=== PATIENT | female | born 1960 | race Caucasian/White ===

== ENCOUNTER 2018-06-16 13:47 | Emergency (ER) | payer OTHER ==
[~2018-06-16] VITALS: Ht 172.7 cm; Wt 78.0 kg
[2018-06-16] MEDS ORDERED: VASOTEC10 MG NGT (13:54)
[2018-06-17] MEDS ORDERED: MUCINEX DM ER1 EAC1 PO (07:03)
[2018-06-17] MEDS ORDERED: LEVALBUTER1.25 MG/3 IH (07:03)
[2018-06-17] MEDS ORDERED: BUDESONIDE0.5 MG/2 M IH (07:03)
[2018-06-17] MEDS ORDERED: TESSALON PERLE100 M1 PO (07:03)
[2018-06-17] MEDS ORDERED: IPRATROPIU0.2 MG/1 M IH (07:03)
[2018-06-17] MEDS ORDERED: MEDROLPACK PO (07:03)
== END 2018-06-17 07:43 | disposition home or self-care (01) ==
LOC: ER 13:47
DX: J44.9 Chronic obstructive pulmonary disease, unspecified (principal); D72.828 Other elevated white blood cell count

== ENCOUNTER 2018-06-20 18:08 | Inpatient (IN) | payer OTHER ==
[~2018-06-20] VITALS: Ht 172.7 cm; Wt 78.0 kg
[~2018-06-20 18:08] MED LIST: BUDESONIDE0.5 MG/2 M IH; IPRATROPIU0.2 MG/1 M IH; LEVALBUTER1.25 MG/3 IH; MEDROLPACK PO; MUCINEX DM ER1 EAC1 PO; TESSALON PERLE100 M1 PO; VASOTEC10 MG NGT
--- NOTE | 2018-06-20 18:17 | NUR ---
PTE DEPENDIENTE DE OXIGENO CON CANULA NASAL A 4 LITROS LLEGA EN SILLA DE TALI EN COMPANIA DE FAMILIAR. QUIEN REFIERE QUE ESTUVO EN ER HACE UNOS TAYLOR. LE DIERON TRATAMIENTO TODO SALIO NEGATIVO Y LE DIERON DE YAMILEX. REFIERE HOY COMENZO A PRESENTAR FIEBRE, TOS SECA PERSISTENTE, ESCALOFRIOS. REFIERE TERMINO LOS MEDICAMENTOS QUE LE RECETARON.
--- NOTE | 2018-06-20 19:01 | NUR ---
EVALUA PTE. SE ORIENTA A PTE SOBRE TX MEDICO. PTE REFIERE COMPRENDER. SE COLECTAN MUESTRAS DE LABORATORIO BAJO MEDIDAS ASEPTICAS. SE ADMINISTRAN MEDICAMENTOS BERTO ORDEN MEDICA. SE NOTIFICAN RAFAT X. SE NOTIFICAN ABG Y TERAPIA RESPIRATORIA A MS.BROWN. PROCEDIMIENTOS LLEVADOS A CABO POR .
--- NOTE | 2018-06-21 01:13 | NUR ---
PACIENTE ALERTA Y ORIENTADA POR GABRIELA ESFERAS EN CAMA CON BARANDAS ELEVADAS POR RAMIREZ SEGURIDAD. PACIENTE CON BUEN PATRON RESPIRATORIO ASISTIDA RESPIRATORIAMENTE CON CANULA NASAL A 3 LTS. PACIENTE CON ORINA ESPONTANEA. SE OBSERVA IVF'S PATENTE PAYTON DE EDEMA Y ENROJECIMIENTO. SE ORIENTA A PACIENTE SOBRE EDUCACION A CESACION DE FUMAR. PACIENTE REFIERE HACE 5 ANOS NO FUMA. PENDIENTE CONSULTA CON DRA. CASILLAS.
--- NOTE | 2018-06-21 07:28 | NUR ---
SE RECIBE PTE DEL TURNO ANTERIOR, ALERTA Y ORIENTADA X 3 ESFERAS, EN CAMA NIVEL MAS BAJO, ORTIZ DE IDENTIFICACION Y BARANDAS ELEVADAS POR PRECAUCION. SE OBSERVA CON BUEN PATRON RESPIRATORIO Y PIEL TIBIA AL TACTO. IV PATENTE Y PAYTON DE EDEMA O ERITEMA CON 0.45% NACL @80ML/HR. PENDIENTE A CONSULTA CON DRA Yasmine CASILLAS. SE MANTIENE BAJO OBSERVACION.
[2018-07-05] MEDS ORDERED: MEDROLPACK PO (08:47)
[2018-07-05] MEDS ORDERED: FLUCONAZOLE200 MG PO (08:47)
[2018-07-05] MEDS ORDERED: METFORMIN HCL500 MG PO (08:52)
== END 2018-07-05 10:22 | disposition home or self-care (01) | DRG 190 ==
LOC: ER 18:08 → MEDI 06-21 08:42 → ICU-2 06-21 08:42 → ICU 06-22 07:41 → MEDI 06-23 12:20
PROVIDERS: ADMIT Internal Medicine
PROC: 3E0F7GC Introduction of Other Therapeutic Substance into Respiratory Tract, Via Natural or Artificial Opening (ICD-10-PCS; principal; 2018-06-20)
PROC: 4A033R1 Measurement of Arterial Saturation, Peripheral, Percutaneous Approach (ICD-10-PCS; 2018-06-20)
PROC: BW24ZZZ Computerized Tomography (CT Scan) of Chest and Abdomen (ICD-10-PCS; 2018-06-26)
PROC: BW28ZZZ Computerized Tomography (CT Scan) of Head (ICD-10-PCS; 2018-06-26)
DX: J44.1 Chronic obstructive pulmonary disease with (acute) exacerbation (principal); A41.89 Other specified sepsis; J18.9 Pneumonia, unspecified organism; R09.02 Hypoxemia; E11.65 Type 2 diabetes mellitus with hyperglycemia; J10.1 Influenza due to other identified influenza virus with other respiratory manifestations; D72.828 Other elevated white blood cell count; Z79.4 Long term (current) use of insulin; Z99.81 Dependence on supplemental oxygen

== ENCOUNTER 2019-02-11 01:36 | Inpatient (IN) | payer OTHER ==
[~2019-02-11] VITALS: Ht 172.7 cm; Wt 82.6 kg
[~2019-02-11 01:36] MED LIST changes: +FLUCONAZOLE200 MG PO; +METFORMIN HCL500 MG PO
[2019-02-11] MEDS ORDERED: PREDNISOLONE ACE5 ML (02:00)
[2019-02-11] MEDS ORDERED: NORVASC2.5 M1 (02:00)
[2019-02-11] MEDS ORDERED: LECITHIN1200 MG (02:01)
[2019-02-11] MEDS ORDERED: ALL DAY ALLERGY10 M3 (02:01)
[2019-02-11] MEDS ORDERED: SINGULAIR 10MG10 MG (02:01)
[2019-02-11] MEDS ORDERED: SPIRIVA RESPIMAT4 G1 (02:02)
[2019-02-11] MEDS ORDERED: ADVAIR HFA 230/12 GM (02:02)
[2019-02-18] MEDS ORDERED: DILTIAZEM HCL30 MG PO (12:04)
== END 2019-02-18 14:11 | disposition home or self-care (01) | DRG 202 ==
LOC: ER 01:36 → SURH 12:44 → MEDJ 12:44 → SURH 02-12 09:45 → MEDJ 02-12 13:36 → SURH 02-12 16:49
PROVIDERS: ADMIT Internal Medicine
PROC: 8E0ZXY6 Isolation (ICD-10-PCS; principal; 2019-02-11)
PROC: 3E0F7GC Introduction of Other Therapeutic Substance into Respiratory Tract, Via Natural or Artificial Opening (ICD-10-PCS; 2019-02-11)
PROC: 4A033R1 Measurement of Arterial Saturation, Peripheral, Percutaneous Approach (ICD-10-PCS; 2019-02-11)
DX: J20.0 Acute bronchitis due to Mycoplasma pneumoniae (principal); J15.7 Pneumonia due to Mycoplasma pneumoniae; J44.1 Chronic obstructive pulmonary disease with (acute) exacerbation; E27.3 Drug-induced adrenocortical insufficiency; E09.9 Drug or chemical induced diabetes mellitus without complications; T38.0X5A Adverse effect of glucocorticoids and synthetic analogues, initial encounter; Y92.238 Other place in hospital as the place of occurrence of the external cause

== ENCOUNTER 2021-10-22 21:08 | Emergency (ER) | payer OTHER ==
[~2021-10-22] VITALS: Ht 172.7 cm; Wt 75.7 kg
[~2021-10-22 21:08] MED LIST changes: +ADVAIR HFA 230/12 GM; +ALL DAY ALLERGY10 M3; +DILTIAZEM HCL30 MG PO; +LECITHIN1200 MG; +NORVASC2.5 M1; +PREDNISOLONE ACE5 ML; +SINGULAIR 10MG10 MG; +SPIRIVA RESPIMAT4 G1
[2021-10-22] MEDS ORDERED: GLIPIZIDE XL10 MG PO (21:42)
[2021-10-22] MEDS ORDERED: FAMCICLOVIR500 MG PO (23:10)
== END 2021-10-22 23:41 | disposition home or self-care (01) ==
LOC: ER 21:08
DX: J44.1 Chronic obstructive pulmonary disease with (acute) exacerbation (principal); E11.65 Type 2 diabetes mellitus with hyperglycemia; Z79.84 Long term (current) use of oral hypoglycemic drugs; I11.9 Hypertensive heart disease without heart failure; A03.9 Shigellosis, unspecified; J43.9 Emphysema, unspecified

== ENCOUNTER 2024-06-12 12:02 | Inpatient (IN) | payer OTHER ==
[~2024-06-12] VITALS: Ht 172.7 cm; Wt 79.4 kg
[~2024-06-12 12:02] MED LIST changes: +FAMCICLOVIR500 MG PO; +GLIPIZIDE XL10 MG PO
[2024-06-12] MEDS ORDERED: IPRATROPIUM BROMIDE 0.5 MG/2.5 ML AMPUL.NEB IH SCH ×2 (13:30→17:44)
[2024-06-12] MEDS ORDERED: 0.9 % SODIUM CHLORIDE 1,000 ML IV ONE (13:30)
[2024-06-12] MEDS ORDERED: FAMOtidine 10 MG/ML (4ML VIAL) IV ONE (13:30)
[2024-06-12] MEDS ORDERED: LEVALBUTEROL HCL 1.25 MG/3 ML SOLUTION IH SCH ×2 (13:30→17:44)
[2024-06-12] MEDS ORDERED: CEFTRIAXONE SODIUM 1,000 MG VIAL IV ONE (13:30)
[2024-06-12] MEDS ORDERED: CEFTRIAXONE SODIUM 1,000 MG VIAL ONE ×2 (13:59→18:06)
[2024-06-12] MEDS ORDERED: FAMOTIDINE/PF 20 MG/2 ML VIAL ONE (13:59)
[2024-06-12 14:42] LABS: INR 1.02; PARTIAL THROMBOPLASTIN TIME 22.5 SECONDS (22.0-34.0); PROTHROMBIN TIME 11.1 SECONDS (9.0-11.5)
[2024-06-12 14:46] LABS: HEMATOCRIT 46.2 % (36.0-45.00); HEMOGLOBIN 15.2 g/dL (12.0-15.00); MEAN CELL VOLUME 85.6 fL (80.00-100.00); MEAN CORPUSCULAR HEMOGLOBIN 28.2 pg (27.00-32.0); PLATELET COUNT 197 K/uL (150-450); RED BLOOD COUNT 5.39 M/uL (4.00-6.00)
[2024-06-12 14:53] LABS: ALBUMIN 3.7 gm/dL (3.4-5.0); BILIRUBIN TOTAL 0.37 mg/dL (0.3-1.2); CALCIUM 10.3 mg/dL (8.5-10.1); CREATININE SERUM 0.78 mg/dL (0.55-1.02); GFR 74.12; GLOBULINA 4.3 G/DL (2.4-3.5); POTASSIUM 4.07 mEq/L (3.5-5.1)
[2024-06-12 14:56] LABS: PH,URINE 7.5 (5.0-8.0); URINE APPEARANCE Clear; URINE BILIRRUBIN Negative (NEGATIVE); URINE BLOOD Negative; URINE COLOR Yellow; URINE KETONE 15 (NEGATIVE); URINE LEUKOCYTE Small; URINE NITRATE Negative; URINE PROTEIN Negative (NEGATIVE)
[2024-06-12 14:59] LABS: URINE BACTERIA 36.6 uL (0.0-1933); URINE EPITHELIAL CELLS 4.2 uL (0.0-38.8); URINE RBC 10.1 uL (0.0-20.8); URINE WBC 44.6 uL (0.0-23.2)
[2024-06-12 15:04] LABS: ABG PH 7.414 (7.35-7.45); ABG pCO2 45.2 mmHg (35-45); BICARBONATE 28.2 mmol/l (23-25); SaO2 97.4 %; Tco2 29.6 mmol/l
[2024-06-12 15:05] LABS: URINE GLUCOSE >=1000 MG/DL (NEGATIVE)
[2024-06-12 15:17] LABS: o2 36 %
[2024-06-12 15:18] LABS: allen test SATISFACTORY; mode NASAL CANNULA; puncture site RADIAL RIGHT
[2024-06-12] MEDS ORDERED: INSULIN REGULAR, HUMAN 1,000 UNIT/10 ML UNITS IV ONE (15:30)
[2024-06-12] MEDS ORDERED: 0.9 % SODIUM CHLORIDE 1,000 ML IV SCH (17:45)
[2024-06-12] MEDS ORDERED: CEFTRIAXONE SODIUM 2,000 MG in 0.9 % SODIUM CHLORIDE 100 ML IV SCH (17:48)
[2024-06-12] MEDS ORDERED: MONTELUKAST SODIUM 10 MG TABLET PO SCH (17:48)
[2024-06-12] MEDS ORDERED: AZITHROMYCIN 500 MG in 0.9 % SODIUM CHLORIDE 250 ML IV SCH (17:48)
[2024-06-12] MEDS ORDERED: KETOROLAC TROMETHAMINE 15 MG VIAL IU ONE (18:00)
[2024-06-12] MEDS ORDERED: INSULIN LISPRO 1,000 UNIT/10 ML UNITS SUBCUTANEO PRN (18:00)
[2024-06-12] MEDS ORDERED: ACETAMINOPHEN 500 MG GEL..CAP PO PRN (18:00)
[2024-06-12] MEDS ORDERED: ACETAMINOPHEN 500 MG GEL..CAP PO ONE ×2 (18:00→18:06)
[2024-06-12] MEDS ORDERED: DEXTROSE 50 % IN WATER 0.5 G/ML VIAL IV PRN (18:00)
[2024-06-12] MEDS ORDERED: KETOROLAC TROMETHAMINE 30 MG VIAL ONE (18:05)
[2024-06-12] MEDS ORDERED: AZITHROMYCIN 500 MG VIAL IV ONE (18:06)
[2024-06-12 19:24] LABS: INFLUENZA A AG NEGATIVE (NEGATIVE)
[2024-06-12 20:38] LABS: COVID-19 AG NEGATIVE (NEGATIVE)
[2024-06-12] MEDS ORDERED: GUAIFEN/DEXTROMETHORPHAN/PE 10 ML BLIST.PACK PO SCH (21:00)
[2024-06-12 21:21] VITALS: O2SAT 97
[2024-06-12 21:59] VITALS: BP 133/75; O2SAT 97
[2024-06-13] VITALS (9 sets, daily range): BP systolic 149–164; BP diastolic 76–84; O2SAT 90–100
[2024-06-13] MEDS ORDERED: FAMOTIDINE/PF 20 MG in 0.9 % SODIUM CHLORIDE 8 ML IV PUSH SCH (09:00)
[2024-06-13] MEDS ORDERED: ROSUVASTATIN CALCIUM 10 MG TABLET PO SCH (09:00)
[2024-06-13] MEDS ORDERED: ENOXAPARIN SODIUM 40 MG/0.4 ML SYRINGE SUBCUTANEO SCH (09:00)
[2024-06-13] MEDS ORDERED: AMLODIPINE BESYLATE 2.5 MG TABLET PO SCH (09:00)
[2024-06-13] MEDS ORDERED: PREDNISONE 20 MG TABLET PO SCH (09:00)
[2024-06-13] MEDS ORDERED: AZITHROMYCIN 500 MG VIAL IV STA (11:36)
[2024-06-13] MEDS ORDERED: AZITHROMYCIN 500 MG VIAL IV ONE (11:37)
[2024-06-13] MEDS ORDERED: KETOROLAC TROMETHAMINE 30 MG VIAL IV PRN ×2 (17:00→17:30)
[2024-06-14] VITALS (7 sets, daily range): BP systolic 150–160; BP diastolic 81–85; O2SAT 92–97
[2024-06-14 05:52] LABS: ALBUMIN 3.1 gm/dL (3.4-5.0); BILIRUBIN TOTAL 0.42 mg/dL (0.3-1.2); CALCIUM 8.5 mg/dL (8.5-10.1); CREATININE SERUM 0.66 mg/dL (0.55-1.02); GFR 89.88; GLOBULINA 3.2 G/DL (2.4-3.5); MAGNESIUM 2.1 mg/dL (1.8-2.4); POTASSIUM 4.43 mEq/L (3.5-5.1); TOTAL PROTEIN 6.3 gm/dL (6.4-8.2)
[2024-06-14 05:55] LABS: C-REACTIVE PROTEIN 1.3 MG/DL (0.00-0.29)
[2024-06-14 06:17] LABS: HEMATOCRIT 40.2 % (36.0-45.00); HEMOGLOBIN 13.5 g/dL (12.0-15.00); MEAN CELL VOLUME 85.5 fL (80.00-100.00); MEAN CORPUSCULAR HEMOGLOBIN 28.6 pg (27.00-32.0); MEAN CORPUSCULAR HGB CONC 33.5 g/dl (32.0-36.0); PLATELET COUNT 168 K/uL (150-450); RED CELL DISTRIBUTION WIDTH 15.9 % (11.5-14.5)
[2024-06-14] MEDS ORDERED: AZITHROMYCIN 500 MG VIAL IV ONE (07:41)
[2024-06-14] MEDS ORDERED: AZITHROMYCIN 500 MG VIAL IV SCH (09:00)
[2024-06-14] MEDS ORDERED: BUDESONIDE 0.5 MG/2 ML AMPUL.NEB IH SCH (17:00)
[2024-06-14] MEDS ORDERED: SODIUM CHLORIDE 0.45 % 1,000 ML IV SCH (20:30)
[2024-06-14] MEDS ORDERED: hydrALAZINE HCL 20 MG VIAL IV PRN (20:45)
[2024-06-14] MEDS ORDERED: ORPHENADRINE CITRATE 30 MG/ML AMPUL IV SCH (21:00)
[2024-06-15] VITALS (10 sets, daily range): BP systolic 156–168; BP diastolic 64–93; O2SAT 90–97
[2024-06-15 04:56] LABS: HEMATOCRIT 42.6 % (36.0-45.00); MEAN CELL VOLUME 85.5 fL (80.00-100.00); MEAN CORPUSCULAR HEMOGLOBIN 28.1 pg (27.00-32.0); MEAN CORPUSCULAR HGB CONC 32.9 g/dl (32.0-36.0); PLATELET COUNT 177 K/uL (150-450); RED BLOOD COUNT 4.99 M/uL (4.00-6.00); RED CELL DISTRIBUTION WIDTH 16.1 % (11.5-14.5)
[2024-06-15] MEDS ORDERED: 0.9 % SODIUM CHLORIDE 10 ML VIAL IJ ONE (08:40)
[2024-06-15] MEDS ORDERED: AZITHROMYCIN 500 MG VIAL IV ONE (08:41)
[2024-06-15] MEDS ORDERED: AMLODIPINE BESYLATE 5 MG TABLET PO SCH (09:00)
[2024-06-15] MEDS ORDERED: INSULIN NPH HUM/REG INSULIN HM 1,000 UNIT/10 ML UNITS SUBCUTANEO STA (09:36)
[2024-06-15] MEDS ORDERED: METHYLPREDNISOLONE SOD SUCC 40 MG VIAL IV SCH (13:00)
[2024-06-15] MEDS ORDERED: IPRATROPIUM BROMIDE 0.5 MG/2.5 ML AMPUL.NEB IH SCH (13:13)
[2024-06-15] MEDS ORDERED: GABAPENTIN 100 MG CAPSULE PO SCH (17:00)
[2024-06-15 18:52] LABS: ABG PH 7.422 (7.35-7.45); ABG pCO2 42.2 mmHg (35-45); BASE EXCESS 2.2 mmol/l; BICARBONATE 26.9 mmol/l (23-25); SaO2 86.2 %; Tco2 28.2 mmol/l
[2024-06-15 20:04] LABS: allen test SATISFACTORY; mode NASAL CANNULA; o2 44 %; puncture site RADIAL LEFT
[2024-06-16] VITALS (9 sets, daily range): BP systolic 128–156; BP diastolic 73–83; O2SAT 90–98
[2024-06-16] MEDS ORDERED: INSULIN NPH HUM/REG INSULIN HM 1,000 UNIT/10 ML UNITS SUBCUTANEO SCH (08:00)
[2024-06-16] MEDS ORDERED: AZITHROMYCIN 500 MG VIAL IV ONE (08:07)
[2024-06-16] MEDS ORDERED: DIATRIZOATE MEGLUMINE, SODIUM 30 ML BOTTLE PO NR (09:00)
[2024-06-16] MEDS ORDERED: INSULIN GLARGINE,HUM.REC.ANLOG 1,000 UNITS/10 ML UNITS SUBCUTANEO STA (21:34)
[2024-06-17] VITALS (7 sets, daily range): BP systolic 131–151; BP diastolic 80–120; O2SAT 90–99
[2024-06-17] MEDS ORDERED: AZITHROMYCIN 500 MG VIAL IV ONE (07:12)
[2024-06-17] MEDS ORDERED: INSULIN LISPRO 1,000 UNIT/10 ML UNITS SUBCUTANEO SCH (08:00)
[2024-06-17] MEDS ORDERED: INSULIN GLARGINE,HUM.REC.ANLOG 1,000 UNITS/10 ML UNITS SUBCUTANEO SCH (21:00)
[2024-06-17] MEDS ORDERED: METHYLPREDNISOLONE SOD SUCC 40 MG VIAL IV SCH (21:00)
[2024-06-18] VITALS (9 sets, daily range): BP systolic 120–160; BP diastolic 76–90; O2SAT 89–99
[2024-06-18] MEDS ORDERED: AZITHROMYCIN 500 MG VIAL IV ONE (07:44)
[2024-06-18 12:00] LABS: BASO % 0.2 % (0.1-1.2); EOS # 0.16 (0.04-0.54); EOS % 0.9 % (0.7-7.0); HEMATOCRIT 45.2 % (34.1-44.9); HEMOGLOBIN 14.1 g/dL (11.2-15.7); LYMPH % 12.8 % (19.3-53.1); MONO # 1.13 (0.24-0.82); MONO % 6.3 % (4.7-12.5); NEUT # 14.21 (1.56-6.13); NEUT % 79.4 % (34.0-71.1); PLATELET COUNT 206 K/uL (163-369); RED BLOOD COUNT 5.23 M/uL (3.93-5.22)
[2024-06-18 13:21] LABS: ALBUMIN 3.5 gm/dL (3.4-5.0); BILIRUBIN TOTAL 0.42 mg/dL (0.3-1.2); CALCIUM 9.1 mg/dL (8.5-10.1); CREATININE SERUM 0.61 mg/dL (0.55-1.02); GFR 98.43; GLOBULINA 3.6 G/DL (2.4-3.5); MAGNESIUM 2.2 mg/dL (1.8-2.4); PHOSPHOROUS 2.8 mg/dL (2.5-4.9); POTASSIUM 3.92 mEq/L (3.5-5.1); TOTAL PROTEIN 7.1 gm/dL (6.4-8.2)
[2024-06-18] MEDS ORDERED: METHYLPREDNISOLONE SOD SUCC 40 MG VIAL IV SCH (21:00)
[2024-06-18] MEDS ORDERED: FAMOtidine 20 MG TABLET PO SCH (21:00)
[2024-06-19] VITALS (8 sets, daily range): BP systolic 146–150; BP diastolic 81–89; O2SAT 87–98
[2024-06-19] MEDS ORDERED: INSULIN LISPRO 1,000 UNIT/10 ML UNITS SUBCUTANEO STA (12:27)
[2024-06-19] MEDS ORDERED: INSULIN LISPRO 1,000 UNIT/10 ML UNITS SUBCUTANEO SCH (17:00)
[2024-06-19] MEDS ORDERED: PATIENTS OWN MEDICATION (MEDICAMENTO EN PISO) IH SCH (17:00)
[2024-06-19] MEDS ORDERED: GABAPENTIN 300 MG CAPSULE PO SCH (17:00)
[2024-06-20] VITALS (8 sets, daily range): BP systolic 122–155; BP diastolic 71–80; O2SAT 87–99
[2024-06-20 06:00] LABS: ALBUMIN 3.3 gm/dL (3.4-5.0); BILIRUBIN TOTAL 0.4 mg/dL (0.3-1.2); CREATININE SERUM 0.65 mg/dL (0.55-1.02); GFR 91.48; GLOBULINA 3.7 G/DL (2.4-3.5); MAGNESIUM 1.9 mg/dL (1.8-2.4); PHOSPHOROUS 3.1 mg/dL (2.5-4.9); POTASSIUM 4.68 mEq/L (3.5-5.1)
[2024-06-20 06:54] LABS: BASO % 0.2 % (0.1-1.2); HEMOGLOBIN 14.2 g/dL (11.2-15.7); LYMPH # 0.74 (1.18-3.74); LYMPH % 3.8 % (19.3-53.1); MEAN CORPUSCULAR HEMOGLOBIN 27.5 pg (25.6-32.2); MONO # 0.89 (0.24-0.82); MONO % 4.5 % (4.7-12.5); NEUT # 17.85 (1.56-6.13); NEUT % 90.7 % (34.0-71.1); PLATELET COUNT 209 K/uL (163-369); RED BLOOD COUNT 5.17 M/uL (3.93-5.22); RED CELL DISTRIBUTION WIDTH 14.7 % (11.6-14.4)
[2024-06-20] MEDS ORDERED: PATIENTS OWN MEDICATION (MEDICAMENTO EN PISO) IH SCH (09:00)
[2024-06-20] MEDS ORDERED: FLUCONAZOLE IN NACL,ISO-OSM 200 MG/100 ML PIGGYBAG IV NR (14:00)
[2024-06-20] MEDS ORDERED: SILVER SULFADIAZINE 50 GM,ZINC OXIDE 30 GM,NYSTATIN 30 GM TOP SCH (17:00)
[2024-06-20] MEDS ORDERED: CLOTRIMAZOLE 10 MG TROCHE MM SCH (17:00)
[2024-06-20] MEDS ORDERED: INSULIN GLARGINE,HUM.REC.ANLOG 1,000 UNITS/10 ML UNITS SUBCUTANEO SCH (21:03)
[2024-06-21] VITALS (9 sets, daily range): BP systolic 123–137; BP diastolic 66–84; O2SAT 90–98
[2024-06-21] MEDS ORDERED: INSULIN LISPRO 1,000 UNIT/10 ML UNITS SUBCUTANEO SCH (08:00)
[2024-06-21] MEDS ORDERED: INSULIN GLARGINE,HUM.REC.ANLOG 1,000 UNITS/10 ML UNITS SUBCUTANEO SCH (09:00)
[2024-06-21] MEDS ORDERED: FLUCONAZOLE IN NACL,ISO-OSM 50 ML IV SCH (12:00)
[2024-06-21] MEDS ORDERED: FLUCONAZOLE IN NACL,ISO-OSM 2 MG/ML ML IV SCH (17:00)
[2024-06-22] VITALS (9 sets, daily range): BP systolic 132–147; BP diastolic 79–90; O2SAT 88–96
[2024-06-22 06:59] LABS: BASO % 0.1 % (0.1-1.2); HEMATOCRIT 45.3 % (34.1-44.9); HEMOGLOBIN 14.3 g/dL (11.2-15.7); LYMPH % 3.4 % (19.3-53.1); MEAN CORPUSCULAR HEMOGLOBIN 27.2 pg (25.6-32.2); MONO # 0.93 (0.24-0.82); MONO % 4.5 % (4.7-12.5); NEUT # 19.01 (1.56-6.13); NEUT % 91.1 % (34.0-71.1); PLATELET COUNT 213 K/uL (163-369); RED BLOOD COUNT 5.25 M/uL (3.93-5.22)
[2024-06-22 07:25] LABS: ALBUMIN 3.1 gm/dL (3.4-5.0); BILIRUBIN TOTAL 0.37 mg/dL (0.3-1.2); CALCIUM 8.8 mg/dL (8.5-10.1); CREATININE SERUM 0.58 mg/dL (0.55-1.02); GFR 104.33; GLOBULINA 3.5 G/DL (2.4-3.5); MAGNESIUM 2.3 mg/dL (1.8-2.4); PHOSPHOROUS 3.2 mg/dL (2.5-4.9); POTASSIUM 4.57 mEq/L (3.5-5.1); TOTAL PROTEIN 6.6 gm/dL (6.4-8.2)
[2024-06-22] MEDS ORDERED: INSULIN LISPRO 1,000 UNIT/10 ML UNITS SUBCUTANEO SCH (12:38)
[2024-06-22] MEDS ORDERED: FLUCONAZOLE IN NACL,ISO-OSM 2 MG/ML ML IV SCH (17:00)
[2024-06-22] MEDS ORDERED: BISMUTH SUBSALICYLATE 524 MG/30 ML BLIST.PACK PO SCH (20:55)
[2024-06-22] MEDS ORDERED: SODIUM CHLORIDE FOR INHALATION 1 VIAL.NEB IH SCH (21:00)
[2024-06-22] MEDS ORDERED: INSULIN GLARGINE,HUM.REC.ANLOG 1,000 UNITS/10 ML UNITS SUBCUTANEO SCH (21:00)
[2024-06-23] VITALS (9 sets, daily range): BP systolic 110–155; BP diastolic 68–88; O2SAT 00–94
[2024-06-23] MEDS ORDERED: INSULIN GLARGINE,HUM.REC.ANLOG 1,000 UNITS/10 ML UNITS SUBCUTANEO SCH ×2 (09:00)
[2024-06-24] VITALS (8 sets, daily range): BP systolic 141–149; BP diastolic 73–79; O2SAT 90–94
[2024-06-24] MEDS ORDERED: METHYLPREDNISOLONE SOD SUCC 40 MG VIAL IV STA (10:39)
[2024-06-24] MEDS ORDERED: BUSPIRONE HCL 15 MG TABLET PO SCH (12:20)
[2024-06-24 12:30] LABS: ABG PH 7.359 (7.35-7.45); ABG PO2 72.9 mmHg (80-100); BASE EXCESS 5.6 mmol/l; BICARBONATE 33.1 mmol/l (23-25)
[2024-06-24] MEDS ORDERED: FAMOTIDINE/PF 20 MG in 0.9 % SODIUM CHLORIDE 8 ML IV PUSH SCH (14:13)
[2024-06-24] MEDS ORDERED: ONDANSETRON HCL 4 MG in 0.9 % SODIUM CHLORIDE 50 ML IV PRN (14:15)
[2024-06-24 19:06] LABS: ABG pCO2 60.1 mmHg (35-45); allen test SATISFACTORY; mode NON REBREATHING MASK; o2 100 %; puncture site RADIAL LEFT
[2024-06-24 19:08] LABS: ABG PO2 101.7 mmHg (80-100); ABG pCO2 55.7 mmHg (35-45); BASE EXCESS 5.4 mmol/l; BICARBONATE 32.2 mmol/l (23-25); SaO2 97.8 %; Tco2 33.9 mmol/l; allen test SATISFACTORY; mode BPAP; o2 100 %; puncture site RADIAL LEFT
[2024-06-25] VITALS (7 sets, daily range): BP systolic 123–154; BP diastolic 79–90; O2SAT 85–100
[2024-06-25 06:45] LABS: BASO % 0.2 % (0.1-1.2); EOS # 0.02 (0.04-0.54); EOS % 0.1 % (0.7-7.0); HEMATOCRIT 50.7 % (34.1-44.9); LYMPH # 1.41 (1.18-3.74); LYMPH % 7.3 % (19.3-53.1); MEAN CORPUSCULAR HEMOGLOBIN 28.1 pg (25.6-32.2); MONO % 7.3 % (4.7-12.5); NEUT # 16.27 (1.56-6.13); NEUT % 84.5 % (34.0-71.1); PLATELET COUNT 183 K/uL (163-369); RED BLOOD COUNT 5.69 M/uL (3.93-5.22); RED CELL DISTRIBUTION WIDTH 15.2 % (11.6-14.4)
[2024-06-25 07:58] LABS: ALBUMIN 2.8 gm/dL (3.4-5.0); BILIRUBIN TOTAL 0.6 mg/dL (0.3-1.2); CALCIUM 8.3 mg/dL (8.5-10.1); CREATININE SERUM 0.57 mg/dL (0.55-1.02); GFR 106.45; GLOBULINA 4.3 G/DL (2.4-3.5); MAGNESIUM 2.4 mg/dL (1.8-2.4); PHOSPHOROUS 2.9 mg/dL (2.5-4.9); POTASSIUM 4.47 mEq/L (3.5-5.1); TOTAL PROTEIN 7.1 gm/dL (6.4-8.2)
[2024-06-25] MEDS ORDERED: METHYLPREDNISOLONE SOD SUCC 125 MG VIAL IV STA (08:25)
[2024-06-25] MEDS ORDERED: METHYLPREDNISOLONE SOD SUCC 40 MG VIAL IV SCH (09:00)
[2024-06-25 10:29] LABS: ABG PH 7.349 (7.35-7.45); ABG PO2 69.4 mmHg (80-100); ABG pCO2 59.2 mmHg (35-45); BASE EXCESS 4.4 mmol/l; BICARBONATE 31.9 mmol/l (23-25); SaO2 92.9 %; Tco2 33.7 mmol/l
[2024-06-25 11:49] LABS: allen test SATISFACTORY; mode ROOM AIR; o2 100 %; puncture site BRADIAL LEFT
[2024-06-25] MEDS ORDERED: AZITHROMYCIN 500 MG VIAL IV SCH (12:00)
[2024-06-25] MEDS ORDERED: DIPHENHYDRAMINE HCL 50 MG/ML VIAL 1ML ONE (14:39)
[2024-06-25] MEDS ORDERED: IPRATROPIUM BROMIDE 0.5 MG/2.5 ML AMPUL.NEB IH ONE (16:53)
[2024-06-25] MEDS ORDERED: LEVALBUTEROL HCL 0.63 MG/3 ML SOLUTION IH ONE (16:53)
[2024-06-25] MEDS ORDERED: METHYLPREDNISOLONE SOD SUCC 125 MG VIAL IV SCH (17:00)
[2024-06-25 19:56] LABS: ABG PH 7.388 (7.35-7.45); ABG PO2 126.1 mmHg (80-100); ABG pCO2 48.4 mmHg (35-45); BASE EXCESS 2.7 mmol/l; BICARBONATE 28.5 mmol/l (23-25); SaO2 98.8 %; allen test SATISFACTORY; mode BPAP; o2 100 %; puncture site RADIAL LEFT
[2024-06-25] MEDS ORDERED: MEROPENEM 500 MG/VIAL VIAL IV SCH (20:00)
[2024-06-25] MEDS ORDERED: VANCOMYCIN HCL 1,000 MG VIAL ONE (20:29)
[2024-06-25] MEDS ORDERED: VANCOMYCIN HCL 1,000 MG VIAL IV SCH (21:00)
[2024-06-26] VITALS (18 sets, daily range): BP systolic 83–164; BP diastolic 60–112; O2SAT 100
[2024-06-26 06:52] LABS: PH,URINE 5.5 (5.0-8.0); URINE APPEARANCE Clear; URINE BILIRRUBIN Negative (NEGATIVE); URINE BLOOD Large; URINE COLOR Yellow; URINE LEUKOCYTE Negative; URINE NITRATE Negative; URINE PROTEIN 30 (NEGATIVE)
[2024-06-26 06:53] LABS: URINE BACTERIA 52.6 uL (0.0-1933); URINE EPITHELIAL CELLS 7.9 uL (0.0-38.8); URINE RBC 582.8 uL (0.0-20.8); URINE WBC 10.9 uL (0.0-23.2)
[2024-06-26 06:54] LABS: URINE CAST 0.44 uL (0.0-1.40); URINE GLUCOSE >=1000 MG/DL (NEGATIVE); URINE KETONE 40 (NEGATIVE)
[2024-06-26] MEDS ORDERED: AMIODARONE HCL 900 MG in DEXTROSE 5 % IN WATER 500 ML IV SCH (07:45)
[2024-06-26 07:51] LABS: ALBUMIN 2.5 gm/dL (3.4-5.0); BILIRUBIN TOTAL 0.71 mg/dL (0.3-1.2); C-REACTIVE PROTEIN 19.2 MG/DL (0.00-0.29); CALCIUM 8.6 mg/dL (8.5-10.1); CREATININE SERUM 0.49 mg/dL (0.55-1.02); GFR 126.74; GLOBULINA 4.4 G/DL (2.4-3.5); MAGNESIUM 2.4 mg/dL (1.8-2.4); PHOSPHOROUS 2.6 mg/dL (2.5-4.9); POTASSIUM 5.28 mEq/L (3.5-5.1); TOTAL PROTEIN 6.9 gm/dL (6.4-8.2)
[2024-06-26] MEDS ORDERED: hydrALAZINE HCL 20 MG VIAL IV STA (08:04)
[2024-06-26] MEDS ORDERED: hydrALAZINE HCL 20 MG VIAL IV PRN (08:15)
[2024-06-26] MEDS ORDERED: SILVER SULFADIAZINE 50 GM JAR TOP ONE (08:40)
[2024-06-26] MEDS ORDERED: VANCOMYCIN HCL 1,000 MG VIAL ONE (08:40)
[2024-06-26] MEDS ORDERED: INSULIN NPH HUMAN ISOPHANE 1,000 UNITS/10 ML UNITS SUBCUTANEO SCH ×2 (09:00→21:00)
[2024-06-26 09:47] LABS: ABG PH 7.394 (7.35-7.45); ABG pCO2 54.2 mmHg (35-45); BASE EXCESS 5.8 mmol/l; BICARBONATE 32.4 mmol/l (23-25); SaO2 93.5 %; o2 100 %
[2024-06-26 09:48] LABS: allen test SATISFACTORY; mode BPAP; puncture site RADIAL RIGHT
[2024-06-26] MEDS ORDERED: PROPOFOL 10,000 MCG/ML VIAL ONE (10:07)
[2024-06-26 10:20] LABS: HEMATOCRIT 48.8 % (34.1-44.9); HEMOGLOBIN 15.4 g/dL (11.2-15.7); MEAN CORPUSCULAR HEMOGLOBIN 27.7 pg (25.6-32.2); PLATELET COUNT 199 K/uL (163-369); RED BLOOD COUNT 5.56 M/uL (3.93-5.22); RED CELL DISTRIBUTION WIDTH 14.8 % (11.6-14.4)
[2024-06-26 10:21] LABS: BASO % 0.1 % (0.1-1.2); LYMPH # 0.83 (1.18-3.74); LYMPH % 3.4 % (19.3-53.1); MONO # 1.64 (0.24-0.82); MONO % 6.7 % (4.7-12.5); NEUT # 21.88 (1.56-6.13); NEUT % 89.1 % (34.0-71.1)
[2024-06-26] MEDS ORDERED: PROPOFOL 10,000 MCG/ML VIAL IV ONE (10:47)
[2024-06-26] MEDS ORDERED: PROPOFOL 100 ML IV SCH (11:15)
[2024-06-26 11:47] LABS: ABG PH 7.309 (7.35-7.45); ABG PO2 80.5 mmHg (80-100); BASE EXCESS 2.7 mmol/l; BICARBONATE 30.9 mmol/l (23-25); SaO2 94.5 %; Tco2 32.8 mmol/l; allen test NO SATISFACTORY; mode MECHANI VENTILATOR; o2 100 %; puncture site RADIAL RIGHT
[2024-06-26 13:32] LABS: ABG PH 7.344 (7.35-7.45)
[2024-06-26 13:33] LABS: ABG PO2 73.7 mmHg (80-100); ABG pCO2 60.1 mmHg (35-45); BASE EXCESS 4.4 mmol/l; SaO2 93.8 %; Tco2 33.8 mmol/l; allen test SATISFACTORY; mode MECHANI VENTILATOR; o2 100 %; puncture site RADIAL RIGHT
[2024-06-26] MEDS ORDERED: DIPHENHYDRAMINE HCL 50 MG/ML VIAL 1ML IV NR (13:45)
[2024-06-26] MEDS ORDERED: ENOXAPARIN SODIUM 80 MG/0.8 ML SYRINGE SUBCUTANEO SCH (17:00)
[2024-06-26] MEDS ORDERED: CHLORHEXIDINE GLUCONATE 15ML BRUSH KIT MM SCH (17:00)
[2024-06-26] MEDS ORDERED: CARBOXYMETHYLCELL/GLYCERIN/PF 1 EACH DROPERETTE OP SCH (17:00)
[2024-06-26] MEDS ORDERED: VANCOMYCIN HCL 5 MG/ML REDILUIDO IV SCH (21:00)
[2024-06-27] VITALS (18 sets, daily range): BP systolic 105–140; BP diastolic 59–86; O2SAT 90–100
[2024-06-27] MEDS ORDERED: INSULIN NPH HUMAN ISOPHANE 1,000 UNITS/10 ML UNITS SUBCUTANEO SCH (09:00)
[2024-06-27] MEDS ORDERED: DILTIAZEM HCL 90 MG TABLET PO SCH (09:00)
[2024-06-27 09:20] LABS: ABG PH 7.348 (7.35-7.45); BASE EXCESS 6.4 mmol/l; BICARBONATE 34.4 mmol/l (23-25); SaO2 98.4 %; Tco2 36.4 mmol/l
[2024-06-27 09:27] LABS: ABG pCO2 64.1 mmHg (35-45)
[2024-06-27 09:29] LABS: allen test NO SATISFACTORY; mode MECHANI VENTILATOR; o2 100 %; puncture site RADIAL RIGHT
[2024-06-28] VITALS (12 sets, daily range): BP systolic 102–146; BP diastolic 61–81; O2SAT 93–97
[2024-06-28 05:46] LABS: ABG PH 7.349 (7.35-7.45); ABG PO2 93.4 mmHg (80-100); BASE EXCESS 5.1 mmol/l; BICARBONATE 32.7 mmol/l (23-25); SaO2 96.9 %; Tco2 34.6 mmol/l
[2024-06-28 06:03] LABS: ABG pCO2 60.7 mmHg (35-45)
[2024-06-28 06:04] LABS: allen test SATISFACTORY; mode MECHANI VENTILATOR; o2 90 %; puncture site RADIAL RIGHT
[2024-06-28 16:04] LABS: CALCIUM 8.2 mg/dL (8.5-10.1); CHOL HDL RATIO 3.7 (0-5.0); CREATININE SERUM 0.64 mg/dL (0.55-1.02); GFR 93.13; POTASSIUM 5.36 mEq/L (3.5-5.1)
[2024-06-28] MEDS ORDERED: AA 4.25%/CAL/LYTES/DEXT 5% 1,000 ML PERIFERAL SCH (17:00)
[2024-06-28] MEDS ORDERED: FentaNYL CITRATE/PF 1,000 MCG in 0.9 % SODIUM CHLORIDE 100 ML IV SCH (20:45)
[2024-06-28 22:11] LABS: ABG PH 7.299 (7.35-7.45)
[2024-06-28 22:15] LABS: ABG pCO2 73.4 mmHg (35-45)
[2024-06-28 22:16] LABS: ABG PO2 102.5 mmHg (80-100); BASE EXCESS 5.9 mmol/l; SaO2 97.2 %
[2024-06-28 22:17] LABS: BICARBONATE 35.2 mmol/l (23-25)
[2024-06-28 22:18] LABS: Tco2 37.4 mmol/l; o2 100 %
[2024-06-28 22:19] LABS: allen test SATISFACTORY; puncture site RADIAL LEFT
[2024-06-28 22:20] LABS: mode MECHANI VENTILATOR
[2024-06-28 22:26] LABS: ABG PH 7.281 (7.35-7.45)
[2024-06-28 22:29] LABS: ABG PO2 83.2 mmHg (80-100); ABG pCO2 77.4 mmHg (35-45); BASE EXCESS 5.8 mmol/l; BICARBONATE 35.6 mmol/l (23-25); SaO2 94.7 %; allen test SATISFACTORY; mode MECHANI VENTILATOR; o2 100 %; puncture site RADIAL LEFT
[2024-06-29] VITALS (16 sets, daily range): BP systolic 11–150; BP diastolic 67–102; O2SAT 87–100
[2024-06-29] MEDS ORDERED: INSULIN NPH HUMAN ISOPHANE 1,000 UNITS/10 ML UNITS SUBCUTANEO SCH (01:00)
[2024-06-29 07:12] LABS: BILIRUBIN TOTAL 0.37 mg/dL (0.3-1.2); CREATININE SERUM 0.62 mg/dL (0.55-1.02); GFR 96.6; GLOBULINA 3.7 G/DL (2.4-3.5); PHOSPHOROUS 2.9 mg/dL (2.5-4.9); TOTAL PROTEIN 5.7 gm/dL (6.4-8.2)
[2024-06-29 07:33] LABS: POTASSIUM 6.42 mEq/L (3.5-5.1)
[2024-06-29] MEDS ORDERED: SODIUM POLYSTYRENE SULFONATE 30G/8 TSP NGT SCH (09:00)
[2024-06-29 09:44] LABS: ABG PH 7.323 (7.35-7.45); ABG PO2 72.5 mmHg (80-100); BASE EXCESS 6.8 mmol/l; BICARBONATE 35.7 mmol/l (23-25); SaO2 93.3 %; Tco2 37.8 mmol/l
[2024-06-29 10:35] LABS: ABG pCO2 70.4 mmHg (35-45)
[2024-06-29 10:36] LABS: allen test SATISFACTORY; mode MECHANI VENTILATOR; o2 90 %; puncture site RADIAL RIGHT
[2024-06-29 10:49] LABS: CALCIUM 8.1 mg/dL (8.5-10.1); CREATININE SERUM 0.56 mg/dL (0.55-1.02); GFR 108.64
[2024-06-29 10:56] LABS: POTASSIUM 6.43 mEq/L (3.5-5.1)
[2024-06-29] MEDS ORDERED: SULFAMETHOXAZOLE/TRIMETHOPRIM 16 MG/ML 10ML VIAL IV SCH (17:00)
[2024-06-29] MEDS ORDERED: POLYVINYL ALCOHOL 15 ML DROPS OP SCH (17:00)
[2024-06-30] VITALS (14 sets, daily range): BP systolic 92–130; BP diastolic 59–82; O2SAT 87–99
[2024-06-30] MEDS ORDERED: INSULIN LISPRO 1,000 UNIT/10 ML UNITS SUBCUTANEO ONE
[2024-06-30 00:01] LABS: ABG PH 7.254 (7.35-7.45)
[2024-06-30 00:04] LABS: ABG PO2 63.7 mmHg (80-100); ABG pCO2 83.3 mmHg (35-45); BASE EXCESS 5.5 mmol/l; SaO2 88.3 %; Tco2 38.6 mmol/l; allen test SATISFACTORY; o2 100 %; puncture site RADIAL LEFT
[2024-06-30] MEDS ORDERED: INSULIN REGULAR, HUMAN 1,000 UNIT/10 ML UNITS ONE ×2 (00:04→01:36)
[2024-06-30 00:05] LABS: mode MECHANI VENTILATOR
[2024-06-30] MEDS ORDERED: INSULIN NPH HUMAN ISOPHANE 1,000 UNITS/10 ML UNITS SUBCUTANEO ONE (00:05)
[2024-06-30] MEDS ORDERED: INSULIN REGULAR, HUMAN 1,000 UNIT/10 ML UNITS IV ONE ×4 (01:45→05:15)
[2024-06-30] MEDS ORDERED: INSULIN NPH HUMAN ISOPHANE 1,000 UNITS/10 ML UNITS SUBCUTANEO SCH ×3 (01:54→17:00)
[2024-06-30] MEDS ORDERED: INSULIN REGULAR, HUMAN 1,000 UNIT/10 ML UNITS IV STA (02:53)
[2024-06-30 08:08] LABS: ALBUMIN 2.1 gm/dL (3.4-5.0); BILIRUBIN TOTAL 0.24 mg/dL (0.3-1.2); CALCIUM 8.1 mg/dL (8.5-10.1); CREATININE SERUM 0.76 mg/dL (0.55-1.02); GFR 76.37; GLOBULINA 3.6 G/DL (2.4-3.5); TOTAL PROTEIN 5.7 gm/dL (6.4-8.2)
[2024-06-30 08:15] LABS: BASO % 0.1 % (0.1-1.2); HEMATOCRIT 44.3 % (34.1-44.9); LYMPH # 0.37 (1.18-3.74); LYMPH % 1.8 % (19.3-53.1); MEAN CORPUSCULAR HEMOGLOBIN 28.3 pg (25.6-32.2); MONO # 1.31 (0.24-0.82); MONO % 6.5 % (4.7-12.5); NEUT # 18.25 (1.56-6.13); NEUT % 90.6 % (34.0-71.1); PLATELET COUNT 147 K/uL (163-369); RED BLOOD COUNT 4.95 M/uL (3.93-5.22); RED CELL DISTRIBUTION WIDTH 14.4 % (11.6-14.4)
[2024-06-30 08:45] LABS: POTASSIUM 6.41 mEq/L (3.5-5.1)
[2024-06-30] MEDS ORDERED: SODIUM POLYSTYRENE SULFONATE 30G/8 TSP NGT SCH ×3 (09:23→18:00)
[2024-06-30] MEDS ORDERED: 0.9 % SODIUM CHLORIDE 1,000 ML IV SCH (10:15)
[2024-06-30] MEDS ORDERED: SODIUM BICARBONATE 1 MEQ/ML DISP.SYRIN 50ML IV STA (10:43)
[2024-06-30] MEDS ORDERED: SODIUM BICARBONATE 50MEQ/50ML VIAL IV NR (10:45)
[2024-06-30] MEDS ORDERED: SODIUM BICARBONATE 50MEQ/50ML VIAL IV ONE (13:08)
[2024-06-30 14:07] LABS: POTASSIUM 6.17 mEq/L (3.5-5.1)
[2024-06-30] MEDS ORDERED: INSULIN REGULAR, HUMAN 1,000 UNIT/10 ML UNITS IV NR (16:00)
[2024-06-30] MEDS ORDERED: ALBUTEROL SULFATE AD IH SCH (17:00)
[2024-07-01] VITALS (16 sets, daily range): BP systolic 80–140; BP diastolic 57–104; O2SAT 76–88
[2024-07-01] MEDS ORDERED: ALBUTEROL SULFATE 3 ML/2.5 MG AMPUL.NEB IH SCH (09:00)
[2024-07-01 09:25] LABS: ABG PH 7.325 (7.35-7.45); ABG PO2 60.3 mmHg (80-100); BASE EXCESS 3.6 mmol/l; BICARBONATE 31.6 mmol/l (23-25); SaO2 88.8 %; Tco2 33.5 mmol/l
[2024-07-01 09:38] LABS: ABG pCO2 62.1 mmHg (35-45)
[2024-07-01 09:39] LABS: allen test SATISFACTORY; mode MECHANI VENTILATOR; o2 100 %; puncture site RADIAL LEFT
[2024-07-01] MEDS ORDERED: NOREPINEPHRINE BITARTRATE 8 MG in DEXTROSE 5 % IN WATER 250 ML IV SCH (10:15)
[2024-07-01 12:35] LABS: CALCIUM 7.4 mg/dL (8.5-10.1); CREATININE SERUM 1.6 mg/dL (0.55-1.02); GFR 32.35; MAGNESIUM 2.7 mg/dL (1.8-2.4); PHOSPHOROUS 5.3 mg/dL (2.5-4.9); POTASSIUM 5.47 mEq/L (3.5-5.1)
[2024-07-01] MEDS ORDERED: SODIUM POLYSTYRENE SULFONATE 15 G/4 TSP TSP RECTAL ONE (13:15)
[2024-07-01 18:12] LABS: BASE EXCESS 0.6 mmol/l; BICARBONATE 31.3 mmol/l (23-25); SaO2 78.5 %; Tco2 33.8 mmol/l
[2024-07-01] MEDS ORDERED: SODIUM BICARBONATE 50MEQ/50ML VIAL IV ONE (18:28)
[2024-07-01 18:43] LABS: ABG PO2 53.4 mmHg (80-100); allen test SATISFACTORY; mode MECHANI VENTILATOR; o2 100 %; puncture site RADIAL RIGHT
[2024-07-01] MEDS ORDERED: SODIUM BICARBONATE 100 MEQ in DEXTROSE 5 % IN WATER 1,000 ML IV SCH (18:45)
[2024-07-01] MEDS ORDERED: CISATRACURIUM BESYLATE 100 MG in 0.9 % SODIUM CHLORIDE 250 ML IV SCH (21:15)
[2024-07-02 01:00] VITALS: BP 132/98; O2SAT 76
[2024-07-02 02:00] VITALS: BP 134/83; O2SAT 75
[2024-07-02 03:14] VITALS: BP 124/77; O2SAT 22
[2024-07-02] MEDS ORDERED: ENOXAPARIN SODIUM 80 MG/0.8 ML SYRINGE SUBCUTANEO SCH (09:00)
[2024-07-04 13:12] LABS: ACTH < 1.5 pg/mL (7.2-63.3)
[2024-07-05 05:07] LABS: DHEA-SULFATE 4.2 ug/dL (20.4-186.6)
== END 2024-07-02 13:34 | disposition expired | DRG 208 ==
LOC: ER 12:02 → MEDI 18:19 → ICU 06-25 17:18
PROVIDERS: General Practice; Internal Medicine; Internal Medicine Critical Care Medicine; Internal Medicine Infectious Disease; ADMIT Internal Medicine; ATTEND Internal Medicine
PROC: BW21ZZZ Computerized Tomography (CT Scan) of Abdomen and Pelvis (ICD-10-PCS; 2024-06-12)
PROC: BB24ZZZ Computerized Tomography (CT Scan) of Bilateral Lungs (ICD-10-PCS; 2024-06-12)
PROC: 3E0F7GC Introduction of Other Therapeutic Substance into Respiratory Tract, Via Natural or Artificial Opening (ICD-10-PCS; 2024-06-12)
PROC: 4A12X4Z Monitoring of Cardiac Electrical Activity, External Approach (ICD-10-PCS; 2024-06-12)
PROC: BW21YZZ Computerized Tomography (CT Scan) of Abdomen and Pelvis using Other Contrast (ICD-10-PCS; 2024-06-15)
PROC: BB24YZZ Computerized Tomography (CT Scan) of Bilateral Lungs using Other Contrast (ICD-10-PCS; 2024-06-25)
PROC: 5A1945Z Respiratory Ventilation, 24-96 Consecutive Hours (ICD-10-PCS; principal; 2024-06-26)
PROC: 0BH17EZ Insertion of Endotracheal Airway into Trachea, Via Natural or Artificial Opening (ICD-10-PCS; 2024-06-26)
PROC: B246ZZZ Ultrasonography of Right and Left Heart (ICD-10-PCS; 2024-06-26)
PROC: 02HV33Z Insertion of Infusion Device into Superior Vena Cava, Percutaneous Approach (ICD-10-PCS; 2024-06-26)
PROC: B548ZZA Ultrasonography of Superior Vena Cava, Guidance (ICD-10-PCS; 2024-06-26)
PROC: 0DH67UZ Insertion of Feeding Device into Stomach, Via Natural or Artificial Opening (ICD-10-PCS; 2024-06-27)
PROC: 5A12012 Performance of Cardiac Output, Single, Manual (ICD-10-PCS; 2024-07-02)
DX: J15.8 Pneumonia due to other specified bacteria (principal); B37.7 Candidal sepsis; J80 Acute respiratory distress syndrome; J44.1 Chronic obstructive pulmonary disease with (acute) exacerbation; J91.8 Pleural effusion in other conditions classified elsewhere; I48.20 Chronic atrial fibrillation, unspecified; E27.3 Drug-induced adrenocortical insufficiency; J69.0 Pneumonitis due to inhalation of food and vomit; K21.9 Gastro-esophageal reflux disease without esophagitis; E87.5 Hyperkalemia; I46.9 Cardiac arrest, cause unspecified; J43.8 Other emphysema; J84.10 Pulmonary fibrosis, unspecified; E11.65 Type 2 diabetes mellitus with hyperglycemia; R10.9 Unspecified abdominal pain; R00.0 Tachycardia, unspecified; E88.09 Other disorders of plasma-protein metabolism, not elsewhere classified; I10 Essential (primary) hypertension; F17.200 Nicotine dependence, unspecified, uncomplicated; Z79.52 Long term (current) use of systemic steroids